=== PATIENT | female | born 1990 | race African-American/Black ===

== ENCOUNTER 2019-09-01 13:39 | Emergency (ER) | payer MEDICARE, MEDICAID ==
[~2019-09-01] VITALS: Ht 160 cm; Wt 104.0 kg
[~2019-09-01 13:39] MED LIST: ACTOS; ATENOLOL; HYDROCHLOROTHIAZIDE; JANUMET
[2019-09-01 17:30] VITALS: BP 149/94
== END 2019-09-01 17:44 | disposition home or self-care (01) ==
LOC: ER 13:52
DX: J06.9 Acute upper respiratory infection, unspecified (principal); N63.0 Unspecified lump in unspecified breast; E11.9 Type 2 diabetes mellitus without complications; Z98.890 Other specified postprocedural states
CPT/HCPCS: 71045; 76641; 81025; 99284